=== PATIENT | female | born 1970 | race Caucasian/White ===

== ENCOUNTER → 2020-05-28 | Day surgery (SDC) | payer OTHER ==
[~2020-05-28] MED LIST: BUPROPION XL150 MG PO; FLEXERIL10 MG PO; LEVOTHYROXINE75 MC1 PO; LIPITOR 10MG TA10 MG PO; MOTRIN600 MG PO; PRILOSEC20 MG PO; VITAMIN D PO; ZOCOR40 MG PO
[2020-05-28 07:44] LABS: HCT 44.6 % (37.0-47.0); HGB 14.5 g/dl (12.5-16.0); MCH 29.4 pg (25.0-31.0); MCHC 32.5 g/dL (32.0-36.0); MCV 90.5 fL (78.0-100.0); MPV 9.4 fL (6.0-9.5); RBC 4.93 M/uL (4.20-5.40); RDW 13.9 % (11.5-14.0); WBC 4.9 K/uL (4.0-10.5)
[2020-05-28 08:00] LABS: BILIRUBIN - TOTAL 0.4 mg/dL (0.2-1.0); BUN/CREAT RATIO (CALC) 15.5 RATIO; CREATININE 0.71 mg/dL (0.51-0.95); GLOBULIN (CALCULATION) 3.6 g/dL; POTASSIUM 3.8 mmol/L (3.5-5.1); TOTAL PROTEIN 7.6 g/dL (6.4-8.2)
== END | disposition home or self-care (01) ==
LOC: FAS 06:58
PROVIDERS: Surgery
DX: Z12.11 Encounter for screening for malignant neoplasm of colon (principal); K22.2 Esophageal obstruction; K29.50 Unspecified chronic gastritis without bleeding; K44.9 Diaphragmatic hernia without obstruction or gangrene; K21.9 Gastro-esophageal reflux disease without esophagitis; Z79.899 Other long term (current) drug therapy
CPT/HCPCS: 43239; 43249; G0121; 36415; 80053; C1726; J2250; J2704; J7120